=== PATIENT | male | born 1960 ===

== ENCOUNTER 2019-01-02 12:11 | Day surgery (SDC) | payer OTHER ==
[2019-01-01 08:29] VITALS: BMI 28.7
[2019-01-02] MEDS ORDERED: Lidocaine 2% Jelly (Uro-Jet) ONE (14:46)
[2019-01-02] MEDS ORDERED: cefTRIAXone 1 gm 1 GM/100 ML BAG IVPB ONE ×2 (14:46→15:03)
[2019-01-02] MEDS ORDERED: Midazolam 2 MG/2 ML VIAL ONE (14:50)
[2019-01-02] MEDS ORDERED: Propofol 10 mg/ml Inj (20 ML) ONE ×2 (14:50→15:12)
[2019-01-02] MEDS ORDERED: Oxycodone/Acetaminophen 5/325 mg Tab PO PRN (15:21)
[2019-01-02] MEDS ORDERED: Gentamicin 80 mg in 0.9% NS 80 MG/100 ML BAG IVPB ONE (15:35)
[2019-01-02 16:23] VITALS: RESP 18; TEMP 97.7
[2019-01-02 17:11] VITALS: BP 145/98; PULSE 71; O2SAT 98
--- NOTE | 2019-01-10 08:14 | OP ---
PROCEDURE DATE: 01/02/2019 UROLOGY OPERATIVE REPORT PREOPERATIVE DIAGNOSES: Elevated PSA, voiding dysfunction, moderate irritative and obstructive urinary complaints. POSTOPERATIVE DIAGNOSES: Elevated PSA, voiding dysfunction, moderate irritative and obstructive urinary complaints. PROCEDURE: Ultrasound of the prostate, ultrasound-guided prostate biopsy. SURGEON: Altaf Rivero MD COMPLICATIONS: There were no complications. BLOOD LOSS: Less than 10 mL. SPECIMEN OBTAINED: Prostate cores. A total of 12 cores were sent. INDICATIONS: Please see history and physical for further details. A very pleasant gentleman who has voiding dysfunction and an elevated PSA. We discussed the options. DESCRIPTION OF PROCEDURE: The patient was brought to the OR and placed on the table in the decubitus position. We used a BK 7.5 MHz probe inserted via the rectum. We took pictures in the transverse and longitudinal view. The volume measured to be about 30 mL. We now began our random biopsy and resection in quadrants of left base, left mid, left apex, right base, right mid, right apex. We actually did 2 in each core for a total of 12 cores. Medial lateral, medial lateral, and ____. A total of 12 cores were sent down. Post-biopsy rectal exam within normal limits. Mild blood noted. We provided antibiotic prophylaxis. A time-out was called, positioning confirmed, everything in order. The patient tolerated the procedure without complication. Altaf Rivero MD
--- NOTE | 2019-01-10 16:28 | HP ---
UROLOGY ADMISSION HISTORY AND PHYSICAL REASON FOR ADMISSION: Elevated PSA. HISTORY OF PRESENT ILLNESS: A very pleasant gentleman who has a voiding dysfunction, decreased flow of stream, nocturia. No gross hematuria, currently microhematuria. Irritative and obstructive voiding complaints and an elevated PSA. He is here today for an ultrasound of the prostate and an ultrasound guided prostate biopsy. PAST MEDICAL HISTORY: As listed on the chart. No history of an MO or CVA. SOCIAL HISTORY: Unremarkable. REVIEW OF SYSTEMS: Listed above, noncontributory. No weight loss, chest pain, or shortness of breath. Regarding his is noted. Smoking history is noted. Socially, although is unremarkable. MEDICATION: See chart. ALLERGIES: SEE CHART. PHYSICAL EXAMINATION: GENERAL: A well-nourished male in no apparent distress. VITAL SIGNS: Within normal limits included in the chart. LUNGS: Clear. HEART: Normal S1, S2. ABDOMEN: Overall soft and nontender. No flank mass appreciated. GENITOURINARY: Normal male phallus appreciated. No appreciable testicular mass. RECTAL: A 30 g prostate, soft and smooth. No specific nodules. No abnormalities appreciated. NEUROLOGIC: Grossly intact. LABORATORY DATA: See chart. DIAGNOSES: 1. Elevated prostate-specific antigen. 2. . 3. Voiding dysfunction, moderate irritative and obstructive complaints. PLAN: As follows: 1. We will provide the patient with antibiotic prophylaxis. 2. Ultrasound of the prostate. 3. Ultrasound-guided prostate biopsy and further plans to follow. Risks, benefits, and treatment alternatives were provided to the patient. Discussed doing the biopsy, infection, bleeding, risk of not doing the biopsy, benefit of doing the biopsy, diagnosing cancer are discussed at length with the patient. We will provide as listed above. Further plans will follow. Altaf Rivero MD
== END 2019-01-02 17:14 | disposition home or self-care (01) ==
LOC: C.SDS 12:11
PROVIDERS: ATTEND Urology
DX: R97.20 Elevated prostate specific antigen [PSA] (principal); R39.198 Other difficulties with micturition
CPT/HCPCS: 55700; 88305; 88342; J0696; J1580